=== PATIENT | male | born 1950 | race American Indian/Alaskan Native ===

== ENCOUNTER 2017-05-02 02:26 | Emergency (ER) | payer MEDICARE ==
[2017-05-02 02:48] VITALS: BP 138/74; PULSE 99; RESP 18; TEMP 98.5; O2SAT 97
[2017-05-02] MEDS ORDERED: Amoxicillin-Clav 875-125 mg Tab PO STA (03:29)
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
== END 2017-05-02 04:41 | disposition home or self-care (01) ==
LOC: H.ER 02:26
DX: S61.452A Open bite of left hand, initial encounter (principal); I10 Essential (primary) hypertension; E05.90 Thyrotoxicosis, unspecified without thyrotoxic crisis or storm; Y04.1XXA Assault by human bite, initial encounter; Z23 Encounter for immunization

== ENCOUNTER 2017-09-22 18:26 | Emergency (ER) | payer MEDICARE, BC ==
[2017-09-22 18:53] VITALS: RESP 18; O2SAT 97
[2017-09-22] MEDS: Sodium Chloride 0.9% 1,000 ML IV STA (19:20)
[2017-09-22 19:35] LABS: BASO % 0.5 % (0.0-2.0); EOS % 0.9 % (0.0-4.0); HEMOGLOBIN 14.3 g/dL (12.0-18.0); LYMPH # 0.8 K/uL (1.0-4.3); LYMPH % 15.2 % (20.0-40.0); MEAN CELL VOLUME 96.4 fl (80.0-94.0); MEAN CORPUSCULAR HGB CONC 33.2 g/dL (33.0-37.0); MEAN PLATELET VOLUME 10.6 fl (7.2-11.7); MONO # 0.6 K/uL (0.0-0.8); MONO % 12.3 % (0.0-10.0); NEUT # 3.6 K/uL (1.8-7.0); NEUT % 71.1 % (50.0-75.0); NRBC % 0.1 % (0.0-0.0); RBC 4.48 Mil/uL (4.40-5.90); RED CELL DISTRIBUTION WIDTH 12.6 % (11.5-14.5); WHITE BLOOD COUNT 5.1 K/uL (4.8-10.8)
--- NOTE | 2017-09-22 19:39 | ED PDOC ---
HPI: Male Pain Time Seen by Provider: 09/22/17 18:33 Chief Complaint (Nursing): GI Problem Chief Complaint (Provider): GI Problem History Per: Patient History/Exam Limitations: no limitations Onset/Duration Of Symptoms: Hrs (since 16:00) Current Symptoms Are (Timing): Still Present Additional Complaint(s): 67 year old male presents to the ED via EMS complaining of nausea, fever, and non bilious, non bloody vomiting onset suddenly at 16:00 today s/p a colonoscopy. Denies abdominal pain, chest pain, shortness of breath, and urinary symptoms, but notes liquid bowel movements and passing gas. Patient reports his colonoscopy was at 09:00 this morning, performed by Dr. Abarca at [facility], and the findings were 3 polyps that were removed from the sigmoid colon, diverticulitis, and non bleeding internal hemorrhoids. Otherwise, the exam was normal. He reports feeling fine and going home, where he ate last at 14 :00. at 16:00 he vomited up his previous meal, prompting him to come into the ED for evaluation. PMD: none provided Past Medical History Reviewed: Historical Data, Nursing Documentation, Vital Signs Vital Signs: Last Vital Signs Temp 103 F H 09/22/17 19:20 Pulse 89 09/22/17 18:52 Resp 18 09/22/17 18:52 BP 151/93 H 09/22/17 18:52 Pulse Ox 97 09/22/17 18:52 - Medical History PMH: HTN, Hyperthyroidism - Surgical History Other surgeries: thyroid nodule resection - Family History Family History: States: No Known Family Hx - Social History Current smoker - smoking cessation education provided: No Alcohol: None Drugs: Denies - Immunization History Hx Tetanus Toxoid Vaccination: No (not sure of last tetanus) - Home Medications Home Medications: Ambulatory Orders Medication Instructions Recorded Amoxicillin/Clavulanate [Augmentin 1 tab PO BID #14 tab 05/02/17 875 MG-125 MG] Ondansetron ODT [Zofran ODT] 1 odt PO Q6 PRN #20 odt 09/22/17 - Allergies Allergies/Adverse Reactions: Allergies Allergy/AdvReac Type Severity Reaction Status Date / Time No Known Allergies Allergy Verified 09/22/17 18:30 Review of Systems ROS Statement: Except As Marked, All Systems Reviewed And Found Negative Constitutional: Positive for: Fever Cardiovascular: Negative for: Chest Pain Respiratory: Negative for: Shortness of Breath Gastrointestinal: Positive for: Nausea, Vomiting (non bilious, non bloody), Other (liquid bowel movements, passing gas). Negative for: Abdominal Pain Genitourinary Male: Negative for: Dysuria, Frequency, Incontinence Physical Exam - Reviewed Nursing Documentation Reviewed: Yes Vital Signs Reviewed: Yes - Physical Exam Appears: Positive for: Uncomfortable, In Acute Distress Head Exam: Positive for: ATRAUMATIC, NORMOCEPHALIC Skin: Positive for: Warm, Dry Eye Exam: Positive for: EOMI, PERRL ENT: Positive for: Pharynx Is (clear), Other (dry mucous membranes) Neck: Positive for: Painless ROM, Supple Cardiovascular/Chest: Positive for: Regular Rate, Rhythm. Negative for: Murmur Respiratory: Positive for: Normal Breath Sounds. Negative for: Respiratory Distress Gastrointestinal/Abdominal: Positive for: Normal Exam, Bowel Sounds, Soft, Distended (mildly). Negative for: Tenderness, Mass, Guarding, Rebound Back: Positive for: Normal Inspection. Negative for: Decreased ROM Extremity: Positive for: Normal ROM. Negative for: Deformity Neurologic/Psych: Negative for: Motor/Sensory Deficits, Mood/Affect - Laboratory Results Result Diagrams: 09/22/17 19:14 09/22/17 19:14 - ECG O2 Sat by Pulse Oximetry: 97 (RA) Pulse Ox Interpretation: Normal Medical Decision Making Medical Decision Making: Initial Impression: vomiting s/p colonoscopy Ddx include but are not limited to: sepsis, obstruction, pneumonia, viral syndrome, dehydration Time: 18:55 Initial Plan: --Type and screen --VBG --CMP --Lipase --CBC with differential --PT / PTT --Abdomen w/ chest XR --Abd/Pelvis w/ IV contrast CT --Sodium chloride 0.9% 1000ml IV --Tylenol 975mg PO --Zofran Inj 8mg IV --Blood culture --Urine culture --Urinalysis 22:30 ABD/PELVIS CT FINDINGS: Lower thorax: There is minimal bibasilar atelectatic change or scarring. ABDOMEN: Liver: There are a few low-attenuation lesions of the liver that are to small to characterize, the largest measuring 1.2 cm. Gallbladder and bile ducts: Normal. No calcified stones. No ductal dilation. Pancreas: Normal. No ductal dilation. Spleen: Normal. No splenomegaly. Adrenals: Normal. No mass. Kidneys and ureters: There are bilateral renal cystic lesions, the largest a simple cyst in the right kidney measuring 4.5 cm. Stomach and bowel: There is mild colonic diverticulosis without evidence for acute diverticulitis. Appendix: The appendix is unremarkable and seen best on axial image 46 of series 2. PELVIS: Bladder: Unremarkable as visualized. Reproductive: Unremarkable as visualized. ABDOMEN and PELVIS: Intraperitoneal space: Normal. No free air. No significant fluid collection. Bones/joints: There are degenerative changes of the spine. Soft tissues: Unremarkable. Vasculature: There are atherosclerotic aortic and iliac artery calcifications. Lymph nodes: Normal. No enlarged lymph nodes. IMPRESSION: 1. There is mild colonic diverticulosis without evidence for acute diverticulitis. 2. No signs of bowel perforation or bowel inflammatory change. Labs are unremarkable. ELISA Abarca pt's GI. Pt to follow up in office. ELISA pt findings and plan of care. Pt is feeling better and eater to be discharged home. Scribe Attestation: Documented by Kristan Shin, acting as a scribe for Rosemary Mendosa MD. Provider Scribe Attestation: All medical entries made by the Scribe were at my direction and personally dictated by me. I have reviewed the chart and agree that the record accurately reflects my personal performance of the history, physical exam, medical decision making, and the department course for this patient. I have also personally directed, reviewed, and agree with the discharge instructions and disposition. Disposition - Clinical Impression Clinical Impression: Acute febrile illness, Nausea & vomiting, Renal cyst Counseled Patient/Family Regarding: Studies Performed, Diagnosis - Disposition Referrals: Shiva Abarca DO [[facility]] - (FOLLOW UP IN THE OFFICE BY THE END OF THE WEEK) Disposition: Routine/Home Disposition Time: 22:45 Condition: IMPROVED Prescriptions: Ondansetron ODT [Zofran ODT] 1 odt PO Q6 PRN #20 odt PRN Reason: Nausea/Vomiting Instructions: Nausea and Vomiting, Adult, Fever, Adult (DC) Forms: [facility] ED School/Work Excuse
[2017-09-22 19:49] LABS: SQUAMOUS EPITHIAL < 1 /hpf (0-5); URINE BILIRUBIN NEGATIVE (NEGATIVE); URINE BLOOD NEGATIVE (NEGATIVE); URINE CLARITY CLEAR (Clear); URINE COLOR YELLOW (YELLOW); URINE GLUCOSE (UA) NEG (Normal); URINE LEUKOCYTE ESTERASE NEG Leu/uL (Negative); URINE PROTEIN NEGATIVE (NEGATIVE); URINE UROBILINOGEN 0.2-1.0 mg/dL (0.2-1.0)
[2017-09-22 19:49] LABS: ALB/GLOB RATIO 1.1 (1.0-2.1); ALBUMIN 4.1 g/dL (3.5-5.0); ALT/SGPT 138 U/L (21-72); AST/SGOT 127 U/L (17-59); BLOOD UREA NITROGEN 17 mg/dl (9-20); GFR AFRICAN-AMERICAN > 60; GFR NON-AFRICAN AMERICAN > 60; LIPASE 41 U/L (23-300)
[2017-09-22 19:49] LABS: VENOUS BLOOD GAS BASE EXCESS 3.6 mmol/L (0.0-2.0); VENOUS BLOOD GAS PCO2 52 mmHg (40-60); VENOUS BLOOD GAS PO2 21 mm/Hg (30-55); VENOUS BLOOD PH 7.37 (7.32-7.43)
[2017-09-22 19:56] LABS: INR 1.1 (0.9-1.2); PARTIAL THROMBOPLASTIN TIME 31.1 Seconds (25.6-37.1); PROTHROMBIN TIME 11.9 Seconds (9.8-13.1)
[2017-09-22] MEDS: Sodium Chloride 0.9% 500 ML IV STA (20:14)
[2017-09-22] MEDS ORDERED: Sodium Chloride 0.9% 50 ML IV ONE (21:18)
[2017-09-22] MEDS ORDERED: Iohexol 300 100 ML IJ ONE (21:18)
[2017-09-22 22:56] VITALS: BP 147/86; PULSE 76; TEMP 98.4
--- NOTE | 2017-09-23 10:54 | RAD ---
HISTORY: fever post colonoscopy COMPARISON: Abdomen pelvis CT examination 09/22/2017. FINDINGS: BOWEL: There is a nonobstructive bowel gas pattern appreciated. No free intraperitoneal gas is demonstrated. Air-fluid levels identified within the region the gastric viscus. A mild amount of retained fecal material is seen in the colon. No suspicious intra-abdominal calcifications identified. BONES: Normal. OTHER FINDINGS: No acute cardiopulmonary findings in the chest radiograph. IMPRESSION: Unremarkable abdomen obstructive series including single frontal chest radiograph.
--- NOTE | 2017-09-23 13:42 | CT ---
PROCEDURE: CT Abdomen and Pelvis with contrast HISTORY: intractable vomiting, post colonoscopy COMPARISON: None. TECHNIQUE: Contrast dose: Radiation dose: Total exam DLP = mGy-cm. This CT exam was performed using one or more of the following dose reduction techniques: Automated exposure control, adjustment of the mA and/or kV according to patient size, and/or use of iterative reconstruction technique. FINDINGS: LOWER THORAX: Anterior right lung base/ sub pleural septal interstitial lung marking prominence . No consolidation No suspect pulmonary nodules LIVER: There are at least 5 fairly circumscribed hypodense lesions throughout the left and right hepatic lobes the largest is approximately 1.2 cm in the more inferior right hepatic lobe (series 3, image 51.) Consider targeted right breast ultrasound for possible cyst characterization. Chronicity and clinical significance otherwise unknown. If not a simple cyst on ultrasound than consider characterization with MRI of the liver without with contrast. The periportal extra hepatic bile ducts appear borderline prominent and/or with increased fat surrounding. With an increase conspicuity of the intrahepatic bile ducts as well. The liver intraductal borderline prominent appearance is minimal GALLBLADDER AND BILE DUCTS: Gallbladder is not distended. PANCREAS: Common bile duct in the pancreatic head and pancreatic duct although within normal limits regarding this. Either more conspicuous slightly than typically seen. No gross pancreatic mass noted. SPLEEN: Unremarkable. ADRENALS: Unremarkable. No mass. KIDNEYS AND URETERS: A lower pole right lateral partially exophytic 4.6 cm cyst benign in appearance is noted. A smaller sub cm anterior midpole benign-appearing smaller cortical exophytic right renal cyst is also present A left lower renal pole partially exophytic 2.9 cm benign-appearing cysts is noted. A left medial upper pole left renal exophytic 2 cm apparent cyst also suggested an a probable parapelvic 1.6 cm bio 2.8 cm cyst mid to lower pole junction also suggested. No peripheral caliectasis seen to suggest hydronephrosis. No suspicious appearing solid mass. In either kidney noted. VASCULATURE: Atherosclerotic vascular calcifications present. .. . No aortic aneurysm. BOWEL: Minimal colonic diverticulosis without diverticulitis. No obstruction. No gross mural thickening. No free air seen APPENDIX: Normal appendix. PERITONEUM: Unremarkable. No free fluid. No free air. LYMPH NODES: Unremarkable. No enlarged lymph nodes. BLADDER: Unremarkable. REPRODUCTIVE: Mild prostatic prominent BONES: No acute fracture. Senescent changes lumbosacral junction concomitant transitional elements here also probable OTHER FINDINGS: Minimal fat only umbilical hernia noted IMPRESSION: Bilateral renal cysts suggested as referenced above. Nonspecific multiple liver hypodense lesions consider ultrasound to characterize the largest 1 in the right hepatic lobe mass referenced above. Minimal colonic diverticulosis without diverticulitis. No obstruction. No free air. Other findings -as above. Concordant results (preliminary interpretation) provided by [facility].
== END 2017-09-22 23:02 | disposition home or self-care (01) ==
LOC: H.ER 18:26
DX: R50.9 Fever, unspecified (principal); R11.2 Nausea with vomiting, unspecified; N28.1 Cyst of kidney, acquired; D12.5 Benign neoplasm of sigmoid colon; E05.90 Thyrotoxicosis, unspecified without thyrotoxic crisis or storm; I10 Essential (primary) hypertension; K57.30 Diverticulosis of large intestine without perforation or abscess without bleeding
CPT/HCPCS: 74022; 74177; 80053; 81003; 82803; 83690; 85025; 85610; 85730; 86850; 86900; 87040; 87086; 96360; 99284; J2405; J7030; Q9967